=== PATIENT | male | born 1965 | race Hispanic/Latino ===

== ENCOUNTER → 2022-03-06 | Outpatient (CLI) | payer BC ==
[~2022-03-06] MED LIST: IOHEXOL-350 75 ML VIAL IV ONE
== END | disposition home or self-care (01) ==
LOC: EDUNIT# 11:30 → RAH 11:31
PROVIDERS: ATTEND Family Medicine
DX: K76.0 Fatty (change of) liver, not elsewhere classified (principal); E27.8 Other specified disorders of adrenal gland
CPT/HCPCS: 74160; Q9967